=== PATIENT | female | born 2000 | race Caucasian/White ===

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

== ENCOUNTER 2021-03-07 14:26 | Emergency (ER) | payer BC ==
[~2021-03-07] VITALS: Ht 182.9 cm; Wt 118.2 kg
[2021-03-07 14:46] LABS: COLLECTION METHOD CLEAN CATCH
[2021-03-07 15:30] LABS: MUCOUS Present /lpf; PH 5 (5-8); URINE APPEARANCE Cloudy; URINE BACTERIA Rare /hpf; URINE BILIRUBIN Negative (NEGATIVE); URINE BLOOD Negative (NEGATIVE); URINE COLOR Yellow; URINE GLUCOSE Negative (NEGATIVE); URINE KETONE Negative (NEGATIVE); URINE LEUKOCYTE ESTERASE 1+ (NEGATIVE); URINE NITRATE Negative (NEGATIVE); URINE PROTEIN(semi-quant) 1+ (NEGATIVE); URINE UROBILINOGEN Negative (NEGATIVE)
[2021-03-07] MEDS ORDERED: OMNICEF 300MG300 MG PO (16:15)
[2021-03-07 16:20] VITALS: BP 136/64; PULSE 72; TEMP 97.8
== END 2021-03-07 16:20 | disposition home or self-care (01) ==
LOC: COL.ER 14:26
PROVIDERS: Physician Assistant
DX: N39.0 Urinary tract infection, site not specified (principal)

== ENCOUNTER 2021-03-16 15:42 | Emergency (ER) | payer BC ==
[~2021-03-16 15:42] MED LIST: OMNICEF 300MG300 MG PO
== END 2021-03-16 16:05 | disposition left against medical advice (07) ==
LOC: COL.ER 15:42
DX: R69 Illness, unspecified (principal)